=== PATIENT | female | born 1995 | race Caucasian/White ===

== ENCOUNTER 2018-03-19 20:17 | Emergency (ER) | payer MEDICAID ==
[~2018-03-19] VITALS: Ht 160 cm; Wt 56.8 kg
[~2018-03-19 20:17] MED LIST: NO HOME MEDS
[2018-03-19 22:49] VITALS: BP 118/87
[2018-03-19] MEDS ORDERED: CEPH-571 PO (22:58)
[2018-03-19] MEDS ORDERED: HYDR-569 PO ×2 (22:58)
== END 2018-03-19 23:31 | disposition home or self-care (01) ==
LOC: ER 20:17
DX: S61.431A Puncture wound without foreign body of right hand, initial encounter (principal); S60.221A Contusion of right hand, initial encounter; W22.8XXA Striking against or struck by other objects, initial encounter; Y93.89 Activity, other specified; Y92.89 Other specified places as the place of occurrence of the external cause; Y99.8 Other external cause status
CPT/HCPCS: 29125; 73120; 99284

== ENCOUNTER 2019-07-18 18:52 | Emergency (ER) | payer MEDICAID ==
[~2019-07-18] VITALS: Ht 160 cm; Wt 52.0 kg
[~2019-07-18 18:52] MED LIST changes: +CEPH-571 PO; +HYDR-4383 PO
[2019-07-18 18:54] VITALS: BP 130/84
--- NOTE | 2019-07-18 20:45 | NUR ---
PT REPORTING THAT IT IS TAKING TOO LONG TO BE SEEN. PT WANTS TO LEAVE AMA. AKILAH MITCHELL AND DR MEDINA NOTIFIED.
== END 2019-07-18 20:48 | disposition left against medical advice (07) ==
LOC: ER 18:53
DX: K08.89 Other specified disorders of teeth and supporting structures (principal); Z53.21 Procedure and treatment not carried out due to patient leaving prior to being seen by health care provider

== ENCOUNTER 2022-08-28 13:22 | Emergency (ER) | payer MEDICAID ==
[~2022-08-28] VITALS: Ht 160 cm; Wt 63.0 kg
[2022-08-28 13:25] VITALS: BP 122/88
[2022-08-28 14:01] LABS: URINE HCG NEGATIVE (NEG)
[2022-08-28 14:02] LABS: CLARITY,URINE SLIGHTLY CLOUDY (Clear); COLOR,URINE YELLOW (Yellow); GLUCOSE, URINE NEGATIVE (Neg); KETONES,URINE TRACE mg/dl (Neg); LEUKOCYTE ESTERASE ,URINE NEGATIVE (Neg); NITRITES, URINE POSITIVE (Neg); OCCULT BLOOD,URINE NEGATIVE (Neg); PH,URINE 5.5 (4.8-8.0); PROTEIN,URINE NEGATIVE (Neg); UROBILINOGEN,URINE 0.2 E.U/dL (0.2-1.0)
[2022-08-28 14:03] LABS: UA COLLECTION TYPE CLN CATCH MIDSTREAM
[2022-08-28 14:14] LABS: MUCUS STRANDS NONE SEEN /LPF (Neg); RBC,URINE 0-2 /HPF (0-2); SQUAMOUS EPITHELIAL CELL,UR MODERATE /LPF (FEW); WBC,URINE 0-4 /HPF (0-4)
[2022-08-28 14:15] LABS: BACTERIA,URINE 2+ /HPF (Neg)
[2022-08-28 16:32] LABS: BASOPHILS % (AUTO) 0.2 % (0-1); EOSINOPHILS # (AUTO) 0.1 X10'3 (0-0.9); EOSINOPHILS % (AUTO) 0.8 % (0-6); HEMOGLOBIN 13.9 g/dl (12.0-16.0); LYMPHOCYTES # (AUTO) 1.7 X10'3 (1.1-4.8); LYMPHOCYTES % (AUTO) 11.6 % (21-51); MEAN CORPUSCULAR HEMOGLOBIN 30.9 PG (27.0-31.0); MEAN CORPUSCULAR VOLUME 93.4 FL (78-98); MEAN PLATELET VOLUME 7.6 FL (7.4-10.4); MONOCYTES # (AUTO) 1.6 X10'3 (0-0.9); MONOCYTES % (AUTO) 10.8 % (2-12); NEUTROPHILS # (AUTO) 11.4 X10'3 (1.8-7.7); NEUTROPHILS % (AUTO) 76.6 % (42-75); PLATELET COUNT 219 X10'3 (140-440); RED CELL DISTRIBUTION WIDTH 13.2 % (11.5-14.5); WHITE BLOOD COUNT 14.8 X10'3 (4.5-11.0)
[2022-08-28 16:50] LABS: ALANINE AMINOTRANSFERASE 71 U/L (12-78); ALBUMIN 3.8 G/DL (3.4-5.0); ALBUMIN/GLOBULIN RATIO 0.9 (1.1-1.5); ALKALINE PHOSPHATASE 116 IU/L (46-116); ANION GAP 9 (8-16); ASPARTATE AMINO TRANSFERASE 56 U/L (10-37); BILIRUBIN,TOTAL 0.6 MG/DL (0.1-1.0); BLOOD UREA NITROGEN 9 MG/DL (7-18); BUN/CREATININE RATIO 12.9 (6.6-38.0); CALCIUM 9.3 MG/DL (8.5-10.1); CHLORIDE 101 MMOL/L (99-107); GLUCOSE 83 MG/DL (70-104); POTASSIUM 3.8 MMOL/L (3.5-5.1); SODIUM 136 MMOL/L (135-145); TOTAL CARBON DIOXIDE 25.9 MMOL/L (24-32); TOTAL PROTEIN 7.9 G/DL (6.4-8.2); eGFR > 90 ML/MIN
[2022-08-28] MEDS ORDERED: CIPR-259 PO (17:23)
[2022-08-28] MEDS ORDERED: BENZ-38 PO (17:23)
== END 2022-08-28 17:41 | disposition left against medical advice (07) ==
LOC: ER 13:23
DX: R05.9 Cough, unspecified (principal); N39.0 Urinary tract infection, site not specified; F17.200 Nicotine dependence, unspecified, uncomplicated
CPT/HCPCS: 36415; 71045; 80053; 81001; 81025; 85025; 87077; 87088; 87186; 99284

== ENCOUNTER 2025-03-20 21:44 | Emergency (ER) | payer MEDICAID ==
[~2025-03-20] VITALS: Ht 160 cm; Wt 57.8 kg
[2025-03-20 21:53] VITALS: BP 179/100; PULSE 90; RESP 15; TEMP 98.6; O2SAT 100
--- NOTE | 2025-03-20 22:01 | ELECTROCARDIOGRAPH REPORT ---
[facility] Test Date: 2025-03-20 Test Time: 21:59:17 Pat Name: BREANNA JOHN Department: [facility]- Patient ID: [facility]-[id number] Room: Gender: F [employer] Manager: : 1995 Requested By: GAUTAM MIRAMONTES Order Number: [id number] Reading MD: Measurements Intervals [place] Rate: 75 P: 57 MI: 121 QRS: 68 QRSD: 84 T: 47 QT: 387 QTc: 433 Interpretive Statements Sinus rhythm Please click the below link to view image of tracing.
[2025-03-20] MEDS ORDERED: AMOX-580 PO (22:59)
[2025-03-20] MEDS ORDERED: HYDR-3965 PO (22:59)
--- NOTE | 2025-03-20 22:59 | Physician Documentation ---
HPI ~ General Chief Complaint: Tooth Problem Stated Complaint: TOOTH PAIN Time Seen by MD: 22:06 Primary Medical Doctor: pilo bowman History of Present Illness HPI Comment Patient is a 30-year-old female that presents to the emergency department for tooth pain x3 days. Patient reports he had a filling that fell out several weeks ago. Reports that the pain has gotten progressively worse over the last couple of days hurts into her ear. Reports she has taken Tylenol and ibuprofen with very little relief. Patient denies fevers or any other symptoms at this time. Medication Reconciliation Allergies: Coded Allergies: No Known Allergies (Unverified , 03/19/18) Scheduled Cephalexin (Keflex), 1 CAP PO Q6H Hydrocodone/Acetaminophen ([place] 5-325 Tablet), 1 TAB PO TID PRN Hydrocodone/Acetaminophen ([place] 5-325 Tablet), 1 TAB PO Q12H PRN Miscellaneous Medications Home Med List (No Home Medications), (Reported) Past Medical History Past Medical History: No Pertinent History Past Surgical History: no surgical history Alcohol Use: Occasionally Drug Use: none Lives with: Family Lives In: Home Occupation: employed, student Review of Systems ROS As stated above in the HPI, otherwise all systems are reviewed and negative. Physical Exam Vital Signs: Temperature: 98.6, Heart Rate: 90, Respiratory Rate: 15, BP: 179/100, Pulse Oximetry: 100, Weight: 57.750 Physical Exam VITALS: Reviewed and as above. GENERAL: Alert, no apparent distress. HEENT: Normocephalic, atraumatic, PERRL, EOMI, dry mucosa, demand swelling noted around the 1st molar on the left side upper jaw, lymphadenopathy noted. RESPIRATORY: Lungs clear, normal breath sounds, no respiratory distress. CHEST: No accessory muscle use, no retractions CV: Regular rate, rhythm, no edema, no murmur, No: JVD GI: Soft, non-tender, bowels sounds present, no rebound, guarding, or rigidity BACK: No CVA tenderness, or swelling MUSCULOSKELETAL No deformities, no edema SKIN: Warm and dry, no rash NEURO: Oriented x4, No motor or sensory deficit PSYCH: Normal mood and affect, no agitation Progress Results/Orders Results/Orders Completed Orders - GAUTAM MIRAMONTES FARM [employer]IST Electrocardiogram (03/20/25 ) Hydrocodone/Apap 10/325 ([place] 10/325mg (03/20/25 22:30) Amox Tr/Potassium Clavulanate (Augmentin (03/20/25 22:30) Vital Signs 03/20/25 21:53 Temp 98.6 Pulse 90 Resp 15 B/P (MAP) 179/100 Pulse Ox 100 Medical Decision Making Findings Patient presents for dental pain due to suspected dental brando. Patient not immunosuppressed, afebrile and well appearing with patent airway, have low suspicfion for deep space infection or any concern for airway compromise. Based on history, physical, and work up. No evidence of tooth fracture, avulsion, or bleeding socket. No evidence of RPA, BILLET INSPECTOR, Ludwigs angina, periapical abscess. Instructed patient to continue to treat pain with ibuprofen/acetaminophen until they see a dentist. Antibiotics and pain medication prescribed. Patient discharged home and will follow up with dentist. Discussed return precautions for odontogenic infections and other dental pain emergencies. Differential Dx:Considerations: Include: Alveolar fracture, Alveolar osteitis, ANUG, Facial Cellulitis, Periapical abscess, Peridontal abscess, Post-extraction bleeding, Pulpitis, Tooth avulsion, Tooth eruption, Tooth Fracture, Trigeminal neuralgia, Tooth subluxation, Other Departure Impression: Primary Impression: Toothache Additional Impression: Dental abscess Discharge Instructions: Dental Pain, Dental Abscess Additional Instructions: Patient presents for dental pain due to suspected dental brando. Patient not immunosuppressed, afebrile and well appearing with patent airway, have low suspicfion for deep space infection or any concern for airway compromise. Based on history, physical, and work up. No evidence of tooth fracture, avulsion, or bleeding socket. No evidence of RPA, BILLET INSPECTOR, Ludwigs angina, periapical abscess. Instructed patient to continue to treat pain with ibuprofen/acetaminophen until they see a dentist. Antibiotics and pain medication prescribed. Patient discharged home and will follow up with dentist. Discussed return precautions for odontogenic infections and other dental pain emergencies. Please take antibiotics as prescribed. Please take pain medication as prescribed. Please follow up with her primary care provider. Please return to the emergency department with any worsening or recurrent symptoms or any additional concerning symptoms that we discussed here today i.e. fevers increased pain increased redness increased swelling difficulty swallowing or any other concerning symptoms. Referrals: NO PRIMARY CARE PROVIDER (PCP) Prescriptions Hydrocodone Bit/Acetaminophen 5/325 MG ([place] 5/325 MG) 5 Mg/325 Mg Tablet 1 TAB PO Q6H PRN for pain for 3 Days, #12 TAB Prov: GAUTAM MIRAMONTESP 03/20/25 Amox Tr/Potassium Clavulanate 875/125 MG (Augmentin 875/125 MG) 875 Mg-125 Mg Tablet 1 TAB PO Q12H for 10 Days, #20 TAB Prov: GAUTAM MIRAMONTESP 03/20/25 Education Educated: Patient Educated regarding: diagnosis, treatment, need for follow up GAUTAM MIRAMONTESP Mar 20, 2025 22:59
[2025-03-20] MEDS: amox tr/potassium clavulanate 875/125mg TAB PO ONE ×2 (23:07→23:09)
[2025-03-20] MEDS: HYDROcodone/acetaminophen 10/325mg tab PO ONE ×2 (23:07→23:09)
== END 2025-03-20 23:18 | disposition home or self-care (01) ==
LOC: ER 21:45
DX: K04.7 Periapical abscess without sinus (principal); Z79.899 Other long term (current) drug therapy
CPT/HCPCS: 93005; 99283

== ENCOUNTER 2025-05-11 01:14 | Emergency (ER) | payer MEDICAID ==
[~2025-05-11] VITALS: Ht 160 cm; Wt 62.1 kg
[2025-05-11 01:48] VITALS: TEMP 98.1
--- NOTE | 2025-05-11 03:54 | Physician Documentation ---
History of Present Illness ~ Chief Complaint: Abscess Stated Complaint: CYST Time Seen by MD: 03:48 Primary Medical Doctor: none HPI 30 year old female reports that she was recently diagnosed with a bartholin cyst and had antibiotics prescribed. She had a follow up appointment for possible incision/drainage and placement of word catheter, however she missed the appointment. Since that time she manually expressed pus and blood from the site and has completed her course of antibiotics. However she reports another area of swelling and pain over the past few days. She denies urinary symptoms, new sexual partners. Tetanus Within 5 Years: Yes Medication Reconciliation Allergies: Coded Allergies: No Known Allergies (Unverified , 05/11/25) Scheduled Cephalexin (Keflex), 1 CAP PO Q6H Hydrocodone/Acetaminophen ([place] 5-325 Tablet), 1 TAB PO TID PRN Hydrocodone/Acetaminophen ([place] 5-325 Tablet), 1 TAB PO Q12H PRN Miscellaneous Medications Home Med List (No Home Medications), (Reported) Past Medical History Past Medical History: No Pertinent History Past Surgical History: no surgical history Last Menstrual Period: May 04, 2025 Smoking Status: Current every day smoker Alcohol Use: Occasionally Drug Use: none Lives with: Family Lives In: Home Occupation: employed, student Review of Systems All Other Systems at this time: Reviewed and Negative Physical Exam Vital Signs: RN Vital Signs have been reviewed: Yes, Temperature: 98.1, Source: Oral, Heart Rate: 95, Respiratory Rate: 16, BP: 159/102, Pulse Oximetry: 100, Weight: 62.100 Oxygen Flow Rate: 0 Physical Exam HEENT: PERRL, moist oral mucosa, EOMI Pulmonary: No respiratory distress : L labia majora with +area of induration, swelling, tenderness, with overlying excoriation that is oozing serous fluid MSK: no deformity Skin: w/d/i, no rash Neuro: alert, nonfocal Psych: normal affect Progress Results/Orders Results/Orders Completed Orders - CORIN BANEGAS MD Clindamycin Capsule (Cleocin Capsule) (05/11/25 03:35) Vital Signs 05/11/25 01:48 Temp 98.1 Pulse 95 Resp 16 B/P (MAP) 159/102 Pulse Ox 100 O2 Flow Rate 0 Medical Decision Making Additional information obtaine: N/A Findings 30 year old female with likely healing bartholin cyst which does not appear amenable to drainage at this time. Will Rx doxcycline with dose here and have instructed patient to please follow up with her women's health clinic as was the original intention. Differential Dx:Considerations: Include: Abscess, Lymphangitis Additional Comment Ddx = bartholin cyst, granuloma inguinatum, syphilis Departure Disposition: HOME / SELF CARE / HOMELESS Impression: Primary Impression: Bartholin cyst Condition: Stable Discharge Instructions: Bartholin's Cyst Referrals: NO PRIMARY CARE PROVIDER (PCP) Prescriptions Doxycycline Monohydrate (Doxycycline Monohydrate) 100 Mg Capsule 1 CAP PO Q12H for 10 Days, #20 CAP Prov: CORIN BANEGAS MD 05/11/25 Education Educated: Patient Educated regarding: diagnosis, treatment, prognosis, need for follow up Signature Scribe Signature: . Attestation: . CORIN BANEGAS MD May 11, 2025 03:54
[2025-05-11] MEDS ORDERED: DOXY-460 PO (03:56)
[2025-05-11] MEDS: DOXYCYCLINE 100MG CAPSULE PO STA (04:01)
[2025-05-11 04:04] VITALS: BP 146/72; PULSE 86; RESP 16; O2SAT 98
== END 2025-05-11 04:05 | disposition home or self-care (01) ==
LOC: ER 01:15
DX: N75.0 Cyst of Bartholin's gland (principal); F17.200 Nicotine dependence, unspecified, uncomplicated
CPT/HCPCS: 99283